=== PATIENT | male | born 1985 ===

== ENCOUNTER 2016-07-30 13:15 | Observation (INO) | payer BC, OTHER ==
[2016-07-30 13:15] VITALS: BMI 21.5
[2016-07-30 13:21] VITALS: PULSE 122; RESP 18; O2SAT 99
[2016-07-30] MEDS ORDERED: Sodium Chloride 0.9% 1,000 ML IV STA ×2 (13:46→15:05)
--- NOTE | 2016-07-30 13:46 | ED PDOC ---
HPI: General Adult Time Seen by Provider: 07/30/16 13:26 Chief Complaint (Nursing): Flu-like Symptoms Chief Complaint (Provider): Flu-like Symptoms History Per: Patient History/Exam Limitations: no limitations Onset/Duration Of Symptoms: Days Current Symptoms Are (Timing): Still Present Additional Complaint(s): 13:40 Andrews Newsome is a 31 year old male that presents to the ED with a chief complaint of diffuse body aches, headache, fever, neck pain, and lower back pain. Patient denies any vomiting, diarrhea, or coughing, and does not have any sick contacts that he is aware of. Of Note: Patient did not have flu vaccination this season. PMD: Dr. Cortez Past Medical History Reviewed: Historical Data, Nursing Documentation, Vital Signs Vital Signs: Last Vital Signs Temp 99.6 F 07/30/16 17:33 Pulse 122 H 07/30/16 13:20 Resp 18 07/30/16 13:20 BP 106/58 L 07/30/16 16:00 Pulse Ox 99 07/30/16 14:21 - Medical History PMH: No Chronic Diseases - Family History Family History: States: Unknown Family Hx - Home Medications Home Medications: Ambulatory Orders Medication Instructions Recorded Benzonatate [Tessalon Perle] 100 mg PO Q8 PRN #30 capsule 02/14/16 Naproxen [Naprosyn] 500 mg PO BID PRN #30 tab 02/14/16 Clindamycin [Cleocin] 300 mg PO BID #14 cap 07/30/16 Ibuprofen [Motrin] 600 mg PO Q6 #20 tab 07/30/16 Methylprednisolone [Medrol Dose 4 mg PO DAILY #21 mg 07/30/16 Pack (21 tabs)] - Allergies Allergies/Adverse Reactions: Allergies Allergy/AdvReac Type Severity Reaction Status Date / Time No Known Allergies Allergy Verified 02/18/15 21:47 Review of Systems Constitutional: Positive for: Fever Respiratory: Negative for: Cough Musculoskeletal: Positive for: Neck Pain, Back Pain (lower back pain) Neurological: Positive for: Headache (Patient states that room feels like it is spinning) Physical Exam - Reviewed Nursing Documentation Reviewed: Yes Vital Signs Reviewed: Yes - Physical Exam Appears: Positive for: Non-toxic, In Acute Distress (Patient is in mild distress ) Head Exam: Positive for: ATRAUMATIC, NORMOCEPHALIC Skin: Positive for: Normal Color, Warm ENT: Negative for: Normal ENT Inspection (throat is erythematous) Neck: Negative for: Normal (positive Kernig's and Brudzinski's sign) Cardiovascular/Chest: Positive for: Regular Rate, Rhythm. Negative for: Murmur Respiratory: Positive for: Normal Breath Sounds. Negative for: Respiratory Distress Back: Negative for: Normal Inspection (lumbosacral midline tenderness) Neurologic/Psych: Positive for: Alert, Oriented - Laboratory Results Result Diagrams: 07/30/16 15:56 07/30/16 15:56 - ECG O2 Sat by Pulse Oximetry: 99 (RA) Pulse Ox Interpretation: Normal Medical Decision Making Medical Decision Makin:45 Impression: Possible Viral syndrome, Flu/Mononucleosis/ r/o meningitis Initial Plan: Pt moved to isolation room after initial evaluation * Chest X-Ray * EKG * CBC * CMP * Flu Swab * Rapid Strep * [place] [facility] Panel * [place] Serology * Blood Culture * Throat Culture * Urine Culture * Urinalysis * Tylenol 975 mg PO * Toradol 30 mg IV * Sodium Chloride 1000 mL at 1000 mL/hr * Reevaluation Labs resulted and reviewed with Pt who demonstrated full understanding. Pt reports possible PCN allergy now, administered IV CLinda Pt on re-eval reports feeling greatly improved. BAck pain resolved. Fever 98.7 F on re-eval. Pt with FROM to neck. site non tender to palpation. Pt stable fro discharge at this time. Advised to continue medications as directed. Return to ED if at anytime condition worsens. Signs and symptoms of meningitis discussed at length Scribe Attestation: Documented by Lidia Roberto, acting as a scribe for Mindi Guy PA-C. Provider Scribe Attestation: All medical record entries made by the Scribe were at my direction and personally dictated by me. I have reviewed the chart and agree that the record accurately reflects my personal performance of the history, physical exam, medical decision making, and the department course for this patient. I have also personally directed, reviewed, and agree with the discharge instructions and disposition. Disposition - Clinical Impression Clinical Impression: Strep pharyngitis - Patient ED Disposition Is Patient to be Admitted: No - Disposition Disposition: Routine/Home Disposition Time: 17:53 Condition: STABLE - POA Present On Arrival: None
--- NOTE | 2016-07-30 15:30 | CT ---
PROCEDURE: CT HEAD WITHOUT CONTRAST. HISTORY: fever, headache, back pain COMPARISON: None available. TECHNIQUE: Axial computed tomography images were obtained through the head/brain without intravenous contrast. Radiation dose: Total exam DLP = 884 mGy-cm. This CT exam was performed using one or more of the following dose reduction techniques: Automated exposure control, adjustment of the mA and/or kV according to patient size, and/or use of iterative reconstruction technique. FINDINGS: HEMORRHAGE: No intracranial hemorrhage. BRAIN: No mass effect or edema. No atrophy or chronic microvascular ischemic changes. VENTRICLES: Unremarkable. No hydrocephalus. CALVARIUM: Unremarkable. PARANASAL SINUSES: Unremarkable as visualized. No significant inflammatory changes. MASTOID AIR CELLS: Unremarkable as visualized. No inflammatory changes. OTHER FINDINGS: None. IMPRESSION: Normal CT of the Head.
[2016-07-30 15:42] LABS: RBC URINE 6 /hpf (0-3); URINE BACTERIA RARE (<OCC); URINE BILIRUBIN NEGATIVE (NEGATIVE); URINE BLOOD NEGATIVE (NEGATIVE); URINE COLOR YELLOW (YELLOW); URINE GLUCOSE (UA) NEG (Normal); URINE KETONE NEGATIVE (NEGATIVE); URINE LEUKOCYTE ESTERASE NEG Leu/uL (Negative); URINE PROTEIN 30 mg/dL (NEGATIVE); URINE UROBILINOGEN 0.2-1.0 mg/dL (0.2-1.0); WBC URINE 1 /hpf (0-5)
--- NOTE | 2016-07-30 15:52 | RAD ---
PROCEDURE: CHEST RADIOGRAPH, 1 VIEW HISTORY: fever COMPARISON: None available. FINDINGS: LUNGS: Clear. PLEURA: No pneumothorax or pleural fluid seen. CARDIOVASCULAR: Normal. OSSEOUS STRUCTURES: No significant abnormalities. VISUALIZED UPPER ABDOMEN: Normal. OTHER FINDINGS: None. IMPRESSION: No active disease.
[2016-07-30 16:12] LABS: BASO % 0.2 % (0.0-2.0); HEMATOCRIT 43.1 % (35.0-51.0); LYMPH # 0.8 K/uL (1.0-4.3); LYMPH % 5.8 % (20.0-40.0); MEAN CELL VOLUME 80.9 fl (80.0-94.0); MEAN CORPUSCULAR HEMOGLOBIN 26.7 pg (27.0-31.0); MONO # 1.1 K/uL (0.0-0.8); MONO % 8.3 % (0.0-10.0); NEUT # 11.3 K/uL (1.8-7.0); NEUT % 85.7 % (50.0-75.0); PLATELET COUNT 166 K/uL (130-400); WHITE BLOOD COUNT 13.2 K/uL (4.8-10.8)
[2016-07-30 16:17] LABS: ALB/GLOB RATIO 1.2 (1.0-2.1); ALKALINE PHOSPHATASE 60 U/L (38-126); ALT/SGPT 47 U/L (21-72); AST/SGOT 30 U/L (17-59); BILIRUBIN,TOTAL 0.5 mg/dl (0.2-1.3); BLOOD UREA NITROGEN 13 mg/dl (9-20); CALCIUM 9.1 mg/dL (8.4-10.2); CARBON DIOXIDE 24 mmol/L (22-30); CHLORIDE 102 mmol/L (98-107); GFR AFRICAN-AMERICAN > 60; GLUCOSE,RANDOM 109 mg/dL (75-110); POTASSIUM 3.6 MMOL/L (3.6-5.0); SODIUM 136 mmol/l (132-148); TOTAL PROTEIN 7.7 G/DL (6.3-8.2)
[2016-07-30 16:18] LABS: VENOUS BLOOD GAS BASE EXCESS 1.5 mmol/L (0.0-2.0); VENOUS BLOOD GAS PCO2 39 mmHg (40-60); VENOUS BLOOD PH 7.43 (7.32-7.43)
[2016-07-30] MEDS ORDERED: Clindamycin 600 MG in Sodium Chloride 0.9% 100 ML IVPB STA (16:30)
[2016-07-30 17:11] LABS: NEUTROPHIL 87 % (42-75); REACTIVE LYMPHOCYTES 1 % (0-0); TOTAL CELLS COUNTED 100
[2016-07-30 17:12] LABS: LARGE PLATELETS PRESENT
[2016-07-30 17:13] LABS: STOMATOCYTES SLIGHT
[2016-07-30 17:33] VITALS: BP 106/58; TEMP 99.6
--- NOTE | 2016-08-01 08:56 | CARD ---
APPROVED REPORT EKG Measurement Heart [id number] <Conclusion> Sinus tachycardia Nonspecific T wave abnormality Abnormal ECG
[2016-08-02 15:28] LABS: EPSTEIN-BARR VCA AB IGG 1.78 (<0.91); EPSTEIN-BARR VCA AB IGM <0.91 (<0.91)
== END 2016-07-30 17:16 | disposition home or self-care (01) ==
LOC: H.ER 13:15 → H.EROBSV 14:23
PROVIDERS: ADMIT Emergency Medicine; ATTEND Emergency Medicine
DX: J02.0 Streptococcal pharyngitis (principal)
CPT/HCPCS: 36415; 70450; 71010; 80053; 81003; 82803; 85025; 86308; 86664; 86665; 87040; 87070; 87086; 87430; 87804; 93005; 96360; 96361; 96374; 99282; G0378; J1885; J7040

== ENCOUNTER 2017-04-16 09:42 | Emergency (ER) | payer BC, OTHER ==
[2017-04-16 09:52] VITALS: TEMP 97; BMI 24.7
[2017-04-16 10:29] VITALS: RESP 16
[2017-04-16] MEDS ORDERED: Sodium Chloride 0.9% 1,000 ML IV SCH (11:00)
[2017-04-16 11:01] LABS: BASO # 0.1 K/uL (0.0-0.2); BASO % 0.5 % (0.0-2.0); EOS # 0.1 K/uL (0.0-0.7); EOS % 0.4 % (0.0-4.0); HEMOGLOBIN 16.2 g/dL (12.0-18.0); LYMPH # 0.4 K/uL (1.0-4.3); LYMPH % 2.4 % (20.0-40.0); MEAN CELL VOLUME 84.2 fl (80.0-94.0); MEAN CORPUSCULAR HEMOGLOBIN 26.9 pg (27.0-31.0); MEAN CORPUSCULAR HGB CONC 31.9 g/dL (33.0-37.0); MEAN PLATELET VOLUME 8.8 fl (7.2-11.7); MONO # 0.7 K/uL (0.0-0.8); NEUT # 15.4 K/uL (1.8-7.0); NEUT % 92.7 % (50.0-75.0); PLATELET COUNT 205 K/uL (130-400); RBC 6.02 Mil/uL (4.40-5.90); RED CELL DISTRIBUTION WIDTH 13.4 % (11.5-14.5); WHITE BLOOD COUNT 16.6 K/uL (4.8-10.8)
[2017-04-16 11:09] LABS: ALB/GLOB RATIO 1.2 (1.0-2.1); ALBUMIN 4.5 g/dL (3.5-5.0); ALT/SGPT 29 U/L (21-72); AST/SGOT 24 U/L (17-59); BLOOD UREA NITROGEN 16 mg/dl (9-20); CALCIUM 9.7 mg/dL (8.4-10.2); GFR AFRICAN-AMERICAN > 60; GFR NON-AFRICAN AMERICAN > 60; LIPASE 50 U/L (23-300)
[2017-04-16 12:20] LABS: ANISOCYTOSIS SLIGHT; EOSINOPHIL 2 % (0-7); LARGE PLATELETS PRESENT; LYMPHOCYTE 1 % (20-50); MONOCYTE 3 % (0-10); NEUTROPHIL 94 % (42-75); OVALOCYTES SLIGHT; PLATELET ESTIMATE NORMAL (NORMAL); TEARDROP CELLS SLIGHT; TOTAL CELLS COUNTED 100
[2017-04-16] MEDS ORDERED: Sodium Chloride 0.9% 50 ML IV ONE (12:25)
[2017-04-16] MEDS ORDERED: Iohexol 300 100 ML IJ ONE (12:25)
--- NOTE | 2017-04-16 12:48 | ED PDOC ---
HPI: Abdomen Time Seen by Provider: 04/16/17 10:18 Chief Complaint (Nursing): Abdominal Pain Chief Complaint (Provider): Abdominal Pain History Per: Patient History/Exam Limitations: no limitations Onset/Duration Of Symptoms: Hrs (x10) Current Symptoms Are (Timing): Still Present Additional Complaint(s): Andrews Newsome is a 32 year old male that presents to the ED with a chief complaint of nausea, vomiting, and diarrhea that he has been experiencing since 2 AM this morning. Patient reports that he has had 4 episodes each of both vomiting and diarrhea, and denies any fever, recent travel, sick contacts, antibiotic use, or eating any new food. Denies any hx of abdominal surgeries. PMD: [place] Past Medical History Reviewed: Historical Data, Nursing Documentation, Vital Signs Vital Signs: Last Vital Signs Temp 97 F L 04/16/17 09:51 Pulse 95 H 04/16/17 09:51 Resp 16 04/16/17 10:28 BP 132/75 04/16/17 09:51 Pulse Ox 98 04/16/17 12:50 - Medical History PMH: No Chronic Diseases - Family History Family History: States: Unknown Family Hx - Home Medications Home Medications: Ambulatory Orders Medication Instructions Recorded Benzonatate [Tessalon Perle] 100 mg PO Q8 PRN #30 capsule 02/14/16 Naproxen [Naprosyn] 500 mg PO BID PRN #30 tab 02/14/16 Clindamycin [Cleocin] 300 mg PO BID #14 cap 07/30/16 Ibuprofen [Motrin] 600 mg PO Q6 #20 tab 07/30/16 Methylprednisolone [Medrol Dose 4 mg PO DAILY #21 mg 07/30/16 Pack (21 tabs)] Dicyclomine [Bentyl] 20 mg PO QID PRN #20 tab 04/16/17 Ondansetron ODT [Zofran ODT] 4 mg PO DAILY PRN #20 odt 04/16/17 - Allergies Allergies/Adverse Reactions: Allergies Allergy/AdvReac Type Severity Reaction Status Date / Time No Known Allergies Allergy Verified 02/18/15 21:47 Review of Systems Gastrointestinal: Positive for: Nausea, Vomiting, Abdominal Pain, Diarrhea Physical Exam - Reviewed Nursing Documentation Reviewed: Yes Vital Signs Reviewed: Yes - Physical Exam Appears: Positive for: Non-toxic, No Acute Distress (Patient is laying comfortably.) Head Exam: Positive for: ATRAUMATIC, NORMOCEPHALIC Skin: Positive for: Normal Color, Warm Eye Exam: Positive for: Normal appearance, EOMI, PERRL ENT: Positive for: Normal ENT Inspection Neck: Positive for: Normal, Supple Cardiovascular/Chest: Positive for: Regular Rate, Rhythm. Negative for: Murmur Respiratory: Positive for: Normal Breath Sounds. Negative for: Wheezing Gastrointestinal/Abdominal: Positive for: Normal Exam, Soft, Tenderness (mild diffuse abdominal tenderness). Negative for: Organomegaly, Mass, Distended, Guarding, Rebound Back: Positive for: Normal Inspection. Negative for: L CVA Tenderness, R CVA Tenderness Extremity: Positive for: Normal ROM Neurologic/Psych: Positive for: Alert, Oriented. Negative for: Motor/Sensory Deficits - Laboratory Results Result Diagrams: 04/16/17 10:52 04/16/17 10:52 - ECG O2 Sat by Pulse Oximetry: 98 (RA) Pulse Ox Interpretation: Normal - CT Scan/US CT A/P w/ IV contrast Other Rad Studies (CT/US): Read By Radiologist (Findings suggest nonspecific enteritis. Clinical correlation recommended. Mild hepatomegaly with mild fatty hepatic infiltration.) Medical Decision Making Medical Decision Making: Impression: Abdominal Pain Plan: * CT Abd/Pelvis with IV Contrast * Pepcid 20 mg IV * Toradol 20 mg IV * Zofran 4 mg IV * Reevaluation Labs reviewed : WBC 16, rest of the labs are wnl. On re-evaluation, patient reports mild improvement of symptoms, reports that he still has mild abdominal pain with no nausea. On exam, abdomen remains soft with minimal diffuse abdominal tenderness, no guarding, no rebound. Considering elevated WBC and patient's symptoms, will order CT A/P. Patient returned from CT, results reviewed and show +enteritis otherwise nothing acute. On re-evaluation, patient reports improvement of symptoms, denies any abdominal pain, nausea or diarrhea. On exam, patient remains AAOx3, in no acute distress. Lungs clear to auscultation, cardiac RRR, abdomen soft, non-tender, repeat neuro exam shows no focal findings. Diagnostic results d/w the patient in great detail. Diagnosis of enteritis d/w the patient. Based on history, exam and diagnostic results, plan will be for outpatient follow up. Advised to drink plenty of fluids. BRAT diet. Patient instructed to follow-up with pmd or the clinic in 1-2 days without fail. Advised to take medication as prescribed. Return to the emergency room at any time for any new or worsening symptoms. Patient states he fully agrees with and understands discharge instructions. States that he agrees with the plan and disposition. Verbalized and repeated discharge instructions and plan. I have given the patient opportunity to ask any additional questions. Scribe Attestation: Documented by Lidia Roberto, acting as a scribe for Katiana Hair PA-C. Provider Scribe Attestation: All medical record entries made by the Scribe were at my direction and personally dictated by me. I have reviewed the chart and agree that the record accurately reflects my personal performance of the history, physical exam, medical decision making, and the department course for this patient. I have also personally directed, reviewed, and agree with the discharge instructions and disposition. Disposition - Clinical Impression Clinical Impression: Abdominal pain, Enteritis - Patient ED Disposition Is Patient to be Admitted: No Counseled Patient/Family Regarding: Studies Performed, Diagnosis, Need For Followup, Rx Given - Disposition Referrals: [facility] [Outside] Disposition: Routine/Home Disposition Time: 14:30 Condition: IMPROVED Additional Instructions: Thank you for letting us take care of you today. You were treated for abdominal pain, gastroenteritis. The emergency medical care you received today was directed at your acute symptoms. If you were prescribed any medication, please fill it and take as directed. It may take several days for your symptoms to resolve. Return to the Emergency Department if your symptoms worsen, do not improve, or if you have any other problems. Please contact your doctor in 2 days for re-evaluation and follow up / or call one of the physicians/clinics you have been referred to that are listed on the Patient Visit Information form that is included in your discharge packet. Bring any paperwork you were given at discharge with you along with any medications you are taking to your follow up visit. Our treatment cannot replace ongoing medical care by a primary care provider (PCP) outside of the emergency department. Thank you for allowing the [email or web address] team to be part of your care today. Prescriptions: Dicyclomine [Bentyl] 20 mg PO QID PRN #20 tab PRN Reason: Other Ondansetron ODT [Zofran ODT] 4 mg PO DAILY PRN #20 odt PRN Reason: Nausea/Vomiting Instructions: Acute Abdominal Pain (ED), Gastroenteritis (ED) Forms: [employer] [place] (Macedonian), [facility] ED School/Work Excuse Print Language: PORTUGUESE
--- NOTE | 2017-04-16 14:23 | CT ---
PROCEDURE: CT abdomen and pelvis dated 04/08/2017. HISTORY: Abdominal pain, V/D COMPARISON: None. TECHNIQUE: Contiguous axial images of the abdomen and pelvis performed following injection of intravenous contrast material. Oral contrast not administered per request. Additional 2 dimensional sagittal and coronal reformats generated. Al reformats generated. Radiation dose: Total exam DLP = 537.31 mGy-cm. This CT exam was performed using one or more of the following dose reduction techniques: Automated exposure control, adjustment of the mA and/or kV according to patient size, and/or use of iterative reconstruction technique. Contrast dose: 95 cc of Omnipaque 300 Radiation dose: Total exam DLP = 537.31 mGy-cm. FINDINGS: LOWER THORAX: Lung bases clear. No infiltrate effusion or basilar pneumothorax. Heart size normal. No significant pericardial effusion. LIVER: Liver is mildly enlarged measuring nearly 20 cm in CC dimension. Mild diffuse fatty hepatic infiltration. No obvious hepatic mass collection or calcification. Portal and splenic veins are opacified. GALLBLADDER AND BILE DUCTS: Gallbladder is incompletely distended. No evidence of intraluminal gallbladder calculi. PANCREAS: Unremarkable. No mass. No ductal dilatation. SPLEEN: Unremarkable. No splenomegaly. ADRENALS: No adrenal lesions. KIDNEYS AND URETERS: Kidneys demonstrate symmetric nephrograms. No evidence of nephrolithiasis or hydronephrosis. BLADDER: Urinary bladder is physiologically distended. No evidence of intraluminal urinary bladder calculi. REPRODUCTIVE: Unremarkable as visualized. APPENDIX: The appendix is not seen with certainty on this exam however no obvious inflammatory changes right lower quadrant of the abdomen to suggest acute appendicitis. . Correlation with surgical history BOWEL: Evaluation of the bowel is limited due to the lack of oral contrast material. The stomach is distended with fluid and air. There are multiple on fluid-filled loops of small bowel some of with mild mucosal/wall enhancement and asymmetric well wall thickening. Findings could represent a nonspecific enteritis. Clinical correlation recommended. Large bowel containing stool and air. No definitive mural wall thickening. The PERITONEUM: Unremarkable. No fluid collection. No free air. LYMPH NODES: Unremarkable. No enlarged lymph nodes. VASCULATURE: Unremarkable. No aortic aneurysm. BONES: No fracture or destructive lesion. OTHER FINDINGS: None. IMPRESSION: Findings suggest nonspecific enteritis. Clinical correlation recommended. Mild hepatomegaly with mild fatty hepatic infiltration.
[2017-04-16 15:44] VITALS: BP 113/67; PULSE 100; O2SAT 100
== END 2017-04-16 15:43 | disposition home or self-care (01) ==
LOC: H.ER 09:42
DX: K52.9 Noninfective gastroenteritis and colitis, unspecified (principal); R10.9 Unspecified abdominal pain
CPT/HCPCS: 74177; 80053; 83690; 85025; 96361; 96374; 96375; 99284; J1885; J2405; J7040; Q9967